=== PATIENT | male | born 1980 | race Two or more races ===

== ENCOUNTER 2018-02-22 19:43 | Emergency (ER) | payer OTHER ==
[~2018-02-22] VITALS: Ht 170.2 cm; Wt 81.6 kg
[2018-02-22 20:00] VITALS: BP 120/78
== END 2018-02-22 20:26 | disposition home or self-care (01) ==
LOC: ER 19:48
DX: J32.8 Other chronic sinusitis (principal)
CPT/HCPCS: A4606; Z7610